=== PATIENT | male | born 1990 | race Caucasian/White ===

== ENCOUNTER 2016-05-24 12:28 | Emergency (ER) | payer OTHER | END 2016-05-24 14:19 | disposition home or self-care (01) | LOC: FER 12:28 | DX: J20.9 Acute bronchitis, unspecified (principal); Z87.891 Personal history of nicotine dependence; Z87.09 Personal history of other diseases of the respiratory system | CPT/HCPCS: 71020; 87450; 87804; 87899; J2930 ==